=== PATIENT | male | born 1955 | race Caucasian/White ===

== ENCOUNTER 2022-03-21 08:43 | Day surgery (SDC) | payer MEDICARE ==
[~2022-03-21] VITALS: Ht 180.3 cm; Wt 90.9 kg
[2022-03-21] MEDS ORDERED: MIDAZolam 1 MG/ML 5ML VIAL ONE (08:46)
[2022-03-21] MEDS ORDERED: fentaNYL/PF 50MCG/1 ML 2ML syringe ONE (08:46)
[2022-03-21 08:56] VITALS: BP 148/79
[2022-03-21] MEDS ORDERED: LEVO100T78 PO (09:02)
[2022-03-21] MEDS ORDERED: DEC1T PO (09:03)
[2022-03-21] MEDS ORDERED: CHLO25TA10 PO (09:03)
[2022-03-21] MEDS ORDERED: TEST1.257 TOP (09:05)
[2022-03-21] MEDS ORDERED: MULT-1172 PO (09:05)
[2022-03-21] MEDS ORDERED: CHOL500050 PO (09:07)
[2022-03-21] MEDS ORDERED: THIA100T70 PO (09:08)
[2022-03-21] MEDS ORDERED: FOLI0.8C PO (09:09)
[2022-03-21] MEDS ORDERED: ATOR40TA PO (09:11)
[2022-03-21] MEDS ORDERED: LISI40TA13 PO (09:13)
[2022-03-21] MEDS ORDERED: AMLO10TA PO (09:13)
[2022-03-21] MEDS ORDERED: ZOLP5TAB8 PO (09:13)
[2022-03-21 10:38] VITALS: BP 129/73
[2022-03-21 10:48] VITALS: BP 122/68
[2022-03-21 10:58] VITALS: BP 125/74
[2022-03-21 11:08] VITALS: BP 131/73
== END 2022-03-21 11:10 | disposition home or self-care (01) ==
LOC: GI LAB 08:43
PROVIDERS: ATTEND Internal Medicine Gastroenterology
DX: Z09 Encounter for follow-up examination after completed treatment for conditions other than malignant neoplasm (principal); K63.5 Polyp of colon; K62.1 Rectal polyp; K57.30 Diverticulosis of large intestine without perforation or abscess without bleeding; K64.8 Other hemorrhoids; Z86.010 Personal history of colon polyps; Z79.899 Other long term (current) drug therapy; Z98.890 Other specified postprocedural states
CPT/HCPCS: 45385; C1773; G0500; J2250; J3010; J7030; Z7512; 88305; 99152; 99153; A4620